=== PATIENT | male | born 1965 | race Caucasian/White ===

== ENCOUNTER 2017-11-07 06:05 | Day surgery (SDC) | payer OTHER ==
[~2017-11-07] VITALS: Ht 182.9 cm; Wt 116.6 kg
[~2017-11-07 06:05] MED LIST: AMOCLA875 PO; ASPI325; CEPH500 PO; CYCL10 PO; HYDACE5 PO; OXYACE7.5T PO; RXCYCL10 PO; RXOXYACE PO; SULTRIDS PO
== END 2017-11-07 11:15 | disposition home or self-care (01) ==
LOC: ORSCSDS 06:05
PROVIDERS: Orthopaedic Surgery
PROC: 0LS24ZZ Reposition Left Shoulder Tendon, Percutaneous Endoscopic Approach (ICD-10-PCS; principal; 2017-11-07 07:30)
PROC: 0LQ24ZZ Repair Left Shoulder Tendon, Percutaneous Endoscopic Approach (ICD-10-PCS; principal; 2017-11-07 07:30)
PROC: 0RBK4ZZ Excision of Left Shoulder Joint, Percutaneous Endoscopic Approach (ICD-10-PCS; principal; 2017-11-07 07:30)
PROC: 0RNK4ZZ Release Left Shoulder Joint, Percutaneous Endoscopic Approach (ICD-10-PCS; principal; 2017-11-07 07:30)
DX: M75.122 Complete rotator cuff tear or rupture of left shoulder, not specified as traumatic (principal); M75.22 Bicipital tendinitis, left shoulder; M75.42 Impingement syndrome of left shoulder; Z87.891 Personal history of nicotine dependence; E66.9 Obesity, unspecified; Z68.34 Body mass index [BMI] 34.0-34.9, adult
CPT/HCPCS: C1713; J0171; J0690; J1100; J2250; J2405; J3010; J7120

== ENCOUNTER 2018-03-01 16:58 | Emergency (ER) | payer OTHER ==
[~2018-03-01] VITALS: Ht 180.3 cm; Wt 68.5 kg
[2018-03-01] MEDS ORDERED: LOSA50 PO (17:58)
[2018-03-01 18:01] LABS: BASOPHILS ABSOLUTE AUTO 0.03 K/mm3 (0.00-0.23); BASOPHILS PERCENT AUTO 0 % (0-2); EOSINOPHILS ABSOLUTE AUTO 0.12 K/mm3 (0.00-0.68); EOSINOPHILS PERCENT AUTO 1 % (0-6); Hematocrit 43.1 % (37.0-53.0); Hemoglobin 14.7 g/dL (13.5-17.5); IMMATURE GRAN ABSOLUTE AUTO 0.03 K/mm3 (0.00-0.10); IMMATURE GRAN PERCENT AUTO 0 % (0-1); LYMPHOCYTES ABSOLUTE AUTO 2.98 K/mm3 (0.84-5.20); LYMPHOCYTES PERCENT AUTO 34 % (21-46); MONOCYTES ABSOLUTE AUTO 0.54 K/mm3 (0.16-1.47); MONOCYTES PERCENT AUTO 6 % (4-13); Mean Corpuscular HGB 32.2 pg (26.0-34.0); Mean Corpuscular HGB Conc 34.1 g/dL (31.5-36.5); Mean Corpuscular Volume 95 fL (80-100); NEUTROPHILS ABSOLUTE AUTO 4.97 K/mm3 (1.96-9.15); NEUTROPHILS PERCENT AUTO 57 % (41-73); Platelet Count 165 K/mm3 (150-400); RDW Coefficient Variation 12.3 % (11.7-14.2); RDW Standard Deviation 42.5 fL (35.1-46.3); Red Blood Cell Count 4.56 M/mm3 (4.30-5.90); White Blood Cell Count 8.67 K/mm3 (4.00-11.30)
[2018-03-01 18:21] LABS: Alanine Aminotransfer (ALT/SGP 80 U/L (12-78); Albumin, Blood 3.9 g/dL (3.4-5.0); Albumin/Globulin Ratio 1.3 (0.8-1.8); Alk Phos 66 U/L (50-136); Anion Gap 7 mmol/L (6-16); Aspartate Aminotrans (AST/SGOT 33 U/L (12-37); Bilirubin, Total 1.1 mg/dL (0.1-1.0); Blood Urea Nitrogen 11 mg/dL (8-24); Bun/Creatinine Ratio 7.9 (12.0-20.0); CO2, Blood 26 mmol/L (21-32); Calcium, Blood 8.2 mg/dL (8.5-10.1); Chloride, Blood 107 mmol/L (98-108); Creatinine, Blood 1.39 mg/dL (0.60-1.20); Glomerular Filtration Rate 57 (60-); Glucose, Blood 92 mg/dL (70-99); Potassium, Blood 3.6 mmol/L (3.5-5.5); Sodium, Blood 140 mmol/L (136-145); Total Protein, Blood 6.9 g/dL (6.4-8.2); Troponin I <0.015 ng/mL (0.000-0.040)
== END 2018-03-01 19:16 | disposition home or self-care (01) ==
LOC: ER 16:58
PROVIDERS: Emergency Medicine
DX: R55 Syncope and collapse (principal); I10 Essential (primary) hypertension; F17.210 Nicotine dependence, cigarettes, uncomplicated
CPT/HCPCS: 36415; 71046; 80053; 83880; 84484; 85025; 93005; 93010; 96374; 99284-25; J0360

== ENCOUNTER → 2018-05-15 | Outpatient (CLI) | payer OTHER ==
[~2018-05-15] MED LIST changes: +LOSA50 PO
[2018-05-15 18:28] LABS: BASOPHILS ABSOLUTE AUTO 0.03 K/mm3 (0.00-0.23); BASOPHILS PERCENT AUTO 0 % (0-2); EOSINOPHILS ABSOLUTE AUTO 0.14 K/mm3 (0.00-0.68); EOSINOPHILS PERCENT AUTO 2 % (0-6); Hematocrit 42.5 % (37.0-53.0); Hemoglobin 15.2 g/dL (13.5-17.5); IMMATURE GRAN ABSOLUTE AUTO 0.02 K/mm3 (0.00-0.10); IMMATURE GRAN PERCENT AUTO 0 % (0-1); LYMPHOCYTES ABSOLUTE AUTO 2.81 K/mm3 (0.84-5.20); LYMPHOCYTES PERCENT AUTO 30 % (21-46); MONOCYTES ABSOLUTE AUTO 0.67 K/mm3 (0.16-1.47); MONOCYTES PERCENT AUTO 7 % (4-13); Mean Corpuscular HGB 32.6 pg (26.0-34.0); Mean Corpuscular HGB Conc 35.8 g/dL (31.5-36.5); Mean Corpuscular Volume 91 fL (80-100); Mean Platelet Volume 11.5 fL (9.1-12.4); NEUTROPHILS ABSOLUTE AUTO 5.68 K/mm3 (1.96-9.15); NEUTROPHILS PERCENT AUTO 61 % (41-73); Platelet Count 191 K/mm3 (150-400); RDW Coefficient Variation 12.2 % (11.7-14.2); RDW Standard Deviation 40.7 fL (35.1-46.3); Red Blood Cell Count 4.66 M/mm3 (4.30-5.90); White Blood Cell Count 9.35 K/mm3 (4.00-11.30)
[2018-05-15 18:42] LABS: Alanine Aminotransfer (ALT/SGP 38 U/L (12-78); Albumin, Blood 3.7 g/dL (3.4-5.0); Albumin/Globulin Ratio 1.3 (0.8-1.8); Alk Phos 67 U/L (40-126); Anion Gap 8 mmol/L (6-16); Aspartate Aminotrans (AST/SGOT 19 U/L (12-37); Bilirubin, Total 1.9 mg/dL (0.1-1.0); Blood Urea Nitrogen 14 mg/dL (8-24); Bun/Creatinine Ratio 10.1 (12.0-20.0); CO2, Blood 28 mmol/L (21-32); CPK Creatine Kinase 161 U/L (39-308); Calcium, Blood 8.4 mg/dL (8.5-10.1); Chloride, Blood 106 mmol/L (98-108); Creatinine, Blood 1.38 mg/dL (0.60-1.20); Globulin, Blood 2.9 g/dL (2.2-4.0); Glomerular Filtration Rate 54 (60-); Glucose, Blood 102 mg/dL (70-99); Potassium, Blood 3.8 mmol/L (3.5-5.5); Sodium, Blood 142 mmol/L (136-145); Total Protein, Blood 6.6 g/dL (6.4-8.2)
[2018-05-15 18:44] LABS: Troponin I <0.017 ng/mL (0.000-0.040)
== END | disposition home or self-care (01) ==
LOC: LAB SHORT 18:22 → LAB EV 18:22
PROVIDERS: Physician Assistant
DX: E80.6 Other disorders of bilirubin metabolism (principal); R07.9 Chest pain, unspecified
CPT/HCPCS: 80053; 82248; 82550; 84484; 85025

== ENCOUNTER 2018-05-23 08:52 | Day surgery (SDC) | payer OTHER ==
[~2018-05-23] VITALS: Ht 180.3 cm; Wt 103.0 kg
[2018-05-23 09:34] LABS: CHOL/HDL RATIO 4.6; Cholesterol 169 mg/dL (50-200); HDL Cholesterol 37 mg/dL (>39); LDL/HDL RATIO 3.1; Low Density Lipoprotein Chol 114 mg/dL (0-110); Triglycerides 89 mg/dL (30-160); Very Low Density Lipoprot Chol 17 mg/dL (6-32)
[2018-05-23] MEDS ORDERED: AMLO5 PO (10:25)
[2018-05-23] MEDS ORDERED: NITR.6SL SL (10:26)
[2018-05-23] MEDS ORDERED: METO25ER PO (10:26)
[2018-05-23] MEDS ORDERED: Isosorbide Dini30 MG (13:59)
--- NOTE | 2018-05-23 15:45 | NUR ---
SUMMARY: PT HAS HAD UENVENTFUL POST PROCEDURE COURSE. EATING/DRINKING WITHOUT DIFFICULTY. NO BLEEDING OR SWELLING NOTED TO RIGHT WRIST ACCESS SITE. CMS INTACT TO RIGHT HAND. NO NUMBNESS OR TINGLING NOTED. CAP REFILL BRISK. PT HAS AMBULATED IN DEPARTMENT. STEADY ON FEET. + VOID. NO C/O PAIN OR DISCOMFORT. FAMILY AT BEDSIDE.
--- NOTE | 2018-05-23 16:45 | NUR ---
REVIEWED DISCHARGE INSTRUCTIONS WITH PATIENT. HE READ THROUGH INSTRUCTIONS ON OWN THEN DISCUSSED WITH RN AFTER. PT ABLE TO ANSWER QUESTIONS APPROPRIATELY REGARDING ACTIVITY LEVEL, SIGNS OF INFECTION, AND EMERGENCY CARE IF BLEEDING. INITIATED REMOVAL OF AIR FROM TR BAND APPROX 30 MINUTES AGO. PT TOLERATING WELL. NO BLEEDING OR SWELLING NOTED.
--- NOTE | 2018-05-23 17:08 | NUR ---
TR BAND FULLY DEFLATED PRIOR TO DISCHARGE. NO BLEEDING OR SWELLING NOTED. PT DRESSED SELF WITHOUT DIFFICULTY. TR BAND REMOVED AND DRESSING APPLIED. ARM BOARD PLACED. NO CHANGE TO [facility]. NO BLEEDING/SWELLING. NO NUMBNESS OR TINGLING TO HAND. CAP REFILL BRISK. IV D/C TIP INTACT. FAMILY HERE TO DRIVE HIM HOME.
== END 2018-05-23 17:00 | disposition home or self-care (01) ==
LOC: MHTC 08:52
PROVIDERS: Internal Medicine Cardiovascular Disease
DX: I25.110 Atherosclerotic heart disease of native coronary artery with unstable angina pectoris (principal); I10 Essential (primary) hypertension; F17.210 Nicotine dependence, cigarettes, uncomplicated; Z79.899 Other long term (current) drug therapy
CPT/HCPCS: 36415; 80061; 93306; 93454; 93571; 99152; 99153; C1769; C1887; C1894; J1644; J2250; J3010; J7030; Q9967

== ENCOUNTER 2018-06-17 12:42 | Day surgery (SDC) | payer OTHER ==
[~2018-06-17] VITALS: Ht 180.3 cm; Wt 98.4 kg
[~2018-06-17 12:42] MED LIST changes: +AMLO5 PO; +ATOR20 PO; +Adult Low Dose81 MG PO; +Isosorbide Dini30 MG PO; +LOSARTAN POTAS100 MG PO; +METO25ER PO; +NITR.6SL SL
--- NOTE | 2018-06-17 15:25 | NUR ---
06/17/18 1525 Natalee Torre INJECTED 10 ML NORMAL SALINE FOR POLYP REMOVAL IN BX PORT
== END 2018-06-17 15:44 | disposition home or self-care (01) ==
LOC: ORSCSDS 12:42
PROVIDERS: Internal Medicine Gastroenterology
PROC: 0DBN8ZX Excision of Sigmoid Colon, Via Natural or Artificial Opening Endoscopic, Diagnostic (ICD-10-PCS; principal; 2018-06-17 14:00)
PROC: 0DBH8ZX Excision of Cecum, Via Natural or Artificial Opening Endoscopic, Diagnostic (ICD-10-PCS; principal; 2018-06-17 14:00)
PROC: 0DBP8ZX Excision of Rectum, Via Natural or Artificial Opening Endoscopic, Diagnostic (ICD-10-PCS; principal; 2018-06-17 14:00)
PROC: 0DBL8ZX Excision of Transverse Colon, Via Natural or Artificial Opening Endoscopic, Diagnostic (ICD-10-PCS; principal; 2018-06-17 14:00)
DX: Z12.11 Encounter for screening for malignant neoplasm of colon (principal); D12.3 Benign neoplasm of transverse colon; D12.0 Benign neoplasm of cecum; K63.5 Polyp of colon; K62.1 Rectal polyp; K57.30 Diverticulosis of large intestine without perforation or abscess without bleeding; K64.8 Other hemorrhoids; I10 Essential (primary) hypertension; F17.210 Nicotine dependence, cigarettes, uncomplicated; Z79.899 Other long term (current) drug therapy
CPT/HCPCS: 88305; J2704; J7040; J7120

== ENCOUNTER → 2018-06-21 | Outpatient (CLI) | payer OTHER ==
[2018-06-23 17:36] LABS: Campylobacter Sp Not Detected (NOT DETECT); Cryptosporidium Not Detected (NOT DETECT); Cyclospora Cayetanensis Not Detected (NOT DETECT); E. Coli O157 Not Detected (NOT DETECT); Entamoeba Histolytica Not Detected (NOT DETECT); Enteroaggregative E. coli-EAEC Not Detected (NOT DETECT); Enteropathogenic E. coli-EPEC Not Detected (NOT DETECT); Enterotoxigenic E. coli-ETEC Not Detected (NOT DETECT); Plesiomonas Shigelloides Not Detected (NOT DETECT); Salmonella Sp Not Detected (NOT DETECT); Shiga Toxin-prod E. coli-STEC Not Detected (NOT DETECT); Shigella/Enteroin E. coli-EIEC Not Detected (NOT DETECT); Vibrio Cholerae Not Detected (NOT DETECT); Vibrio Sp Not Detected (NOT DETECT); Yersinia Enterocolitica Not Detected (NOT DETECT)
[2018-06-23 17:37] LABS: Adenovirus F 40/41 Not Detected (NOT DETECT); Astrovirus Not Detected (NOT DETECT); Giardia Lamblia Not Detected (NOT DETECT); Norovirus GI/GII Not Detected (NOT DETECT); Rotavirus A Not Detected (NOT DETECT); Sapovirus Not Detected (NOT DETECT)
== END ==
LOC: LAB SHORT 08:10 → LAB EV 08:10
PROVIDERS: Physician Assistant
DX: K52.9 Noninfective gastroenteritis and colitis, unspecified (principal)
CPT/HCPCS: 87507

== ENCOUNTER 2018-07-17 09:22 | Day surgery (SDC) | payer OTHER ==
[~2018-07-17] VITALS: Ht 180.3 cm; Wt 103.2 kg
[2018-07-17] MEDS ORDERED: Prilosec Otc20 MG PO (09:53)
--- NOTE | 2018-07-17 09:56 | NUR ---
07/17/18 0956 Kay Argueta 1ST I.V. ATTEMPT IN RIGHT HAND BY EDGAR 2ND I.V. ATTEMPT IN RIGHT WRIST BY [facility] 3RD I.V. ATTEMPT IN RIGHT AC
== END 2018-07-17 12:30 | disposition home or self-care (01) ==
LOC: ORSCSDS 09:22
PROVIDERS: Internal Medicine Gastroenterology
PROC: 0DB68ZX Excision of Stomach, Via Natural or Artificial Opening Endoscopic, Diagnostic (ICD-10-PCS; principal; 2018-07-17 10:45)
PROC: 0DB98ZX Excision of Duodenum, Via Natural or Artificial Opening Endoscopic, Diagnostic (ICD-10-PCS; principal; 2018-07-17 10:45)
DX: K62.5 Hemorrhage of anus and rectum (principal); K44.9 Diaphragmatic hernia without obstruction or gangrene; R19.7 Diarrhea, unspecified; B96.81 Helicobacter pylori [H. pylori] as the cause of diseases classified elsewhere; R10.11 Right upper quadrant pain; I10 Essential (primary) hypertension; Z86.010 Personal history of colon polyps; R93.3 Abnormal findings on diagnostic imaging of other parts of digestive tract; K76.0 Fatty (change of) liver, not elsewhere classified; E66.9 Obesity, unspecified; Z68.31 Body mass index [BMI] 31.0-31.9, adult; F17.210 Nicotine dependence, cigarettes, uncomplicated; Z79.899 Other long term (current) drug therapy
CPT/HCPCS: 88305; 88342; J2704; J7120

== ENCOUNTER → 2018-08-13 | Outpatient (CLI) | payer OTHER ==
[~2018-08-13] MED LIST changes: +HYDHCL25 PO; +Prilosec Otc20 MG PO; +Triamcinolone A15 G3 TOP
[2018-08-13 07:54] LABS: BASOPHILS ABSOLUTE AUTO 0.04 K/mm3 (0.00-0.23); BASOPHILS PERCENT AUTO 0 % (0-2); EOSINOPHILS PERCENT AUTO 2 % (0-6); Hematocrit 45.8 % (37.0-53.0); Hemoglobin 16.2 g/dL (13.5-17.5); IMMATURE GRAN ABSOLUTE AUTO 0.02 K/mm3 (0.00-0.10); IMMATURE GRAN PERCENT AUTO 0 % (0-1); LYMPHOCYTES ABSOLUTE AUTO 2.57 K/mm3 (0.84-5.20); LYMPHOCYTES PERCENT AUTO 25 % (21-46); MONOCYTES ABSOLUTE AUTO 0.66 K/mm3 (0.16-1.47); MONOCYTES PERCENT AUTO 7 % (4-13); Mean Corpuscular HGB 31.3 pg (26.0-34.0); Mean Corpuscular HGB Conc 35.4 g/dL (31.5-36.5); Mean Corpuscular Volume 88 fL (80-100); Mean Platelet Volume 11.7 fL (9.1-12.4); NEUTROPHILS ABSOLUTE AUTO 6.61 K/mm3 (1.96-9.15); NEUTROPHILS PERCENT AUTO 66 % (41-73); Platelet Count 212 K/mm3 (150-400); RDW Coefficient Variation 12.2 % (11.7-14.2); Red Blood Cell Count 5.18 M/mm3 (4.30-5.90)
[2018-08-13 08:07] LABS: Alanine Aminotransfer (ALT/SGP 46 U/L (12-78); Albumin, Blood 3.9 g/dL (3.4-5.0); Albumin/Globulin Ratio 1.2 (0.8-1.8); Alk Phos 84 U/L (40-126); Anion Gap 10 mmol/L (6-16); Aspartate Aminotrans (AST/SGOT 20 U/L (12-37); Bilirubin, Total 1.3 mg/dL (0.1-1.0); Blood Urea Nitrogen 15 mg/dL (8-24); Bun/Creatinine Ratio 10.9 (12.0-20.0); CO2, Blood 28 mmol/L (21-32); Calcium, Blood 8.9 mg/dL (8.5-10.1); Chloride, Blood 104 mmol/L (98-108); Creatinine, Blood 1.38 mg/dL (0.60-1.20); Globulin, Blood 3.3 g/dL (2.2-4.0); Glomerular Filtration Rate 54 (60-); Glucose, Blood 102 mg/dL (70-99); Potassium, Blood 3.8 mmol/L (3.5-5.5); Sodium, Blood 142 mmol/L (136-145); Total Protein, Blood 7.2 g/dL (6.4-8.2)
[2018-08-13 08:11] LABS: Troponin I <0.017 ng/mL (0.000-0.040)
== END | disposition home or self-care (01) ==
LOC: LAB SHORT 07:49 → LAB EV 07:49
PROVIDERS: Physician Assistant Medical
DX: R07.89 Other chest pain (principal)
CPT/HCPCS: 80053; 84484; 85025; 85379; 85651; 86140

== ENCOUNTER 2018-08-28 11:06 | Emergency (ER) | payer OTHER ==
[~2018-08-28] VITALS: Ht 180.3 cm; Wt 100.7 kg
[~2018-08-28 11:06] MED LIST changes: -HYDHCL25 PO; -Triamcinolone A15 G3 TOP
[2018-08-28] MEDS ORDERED: HYDHCL25 PO (13:24)
[2018-08-28] MEDS ORDERED: Triamcinolone A15 G3 TOP (13:24)
== END 2018-08-28 13:34 | disposition home or self-care (01) ==
LOC: ER 11:06
DX: L25.9 Unspecified contact dermatitis, unspecified cause (principal); F17.210 Nicotine dependence, cigarettes, uncomplicated
CPT/HCPCS: 96372; 99283-25; J3301

== ENCOUNTER → 2018-09-06 | Outpatient (CLI) | payer OTHER ==
[~2018-09-06] MED LIST changes: +HYDHCL25 PO; +Triamcinolone A15 G3 TOP
== END | disposition home or self-care (01) ==
LOC: LAB SHORT 10:00 → LAB 10:00 → LAB FUT 08-07 09:45 → EDSTATUS 08-07 09:45
DX: K29.60 Other gastritis without bleeding (principal); R19.7 Diarrhea, unspecified; R10.11 Right upper quadrant pain
CPT/HCPCS: 87493

== ENCOUNTER → 2019-10-28 | Outpatient (CLI) | payer OTHER | END | disposition home or self-care (01) | LOC: LAB SHORT 07:58 → PLD 07:58 | DX: L72.0 Epidermal cyst (principal) | CPT/HCPCS: 88304 ==

== ENCOUNTER 2020-01-26 07:42 | Day surgery (SDC) | payer OTHER ==
[~2020-01-26] VITALS: Ht 182.9 cm; Wt 113.0 kg
[~2020-01-26 07:42] MED LIST changes: +NORVASC10 MG PO
== END 2020-01-26 09:59 | disposition home or self-care (01) ==
LOC: ORSCSDS 07:42
PROVIDERS: Orthopaedic Surgery
PROC: 01N50ZZ Release Median Nerve, Open Approach (ICD-10-PCS; principal; 2020-01-26 09:15)
DX: G56.01 Carpal tunnel syndrome, right upper limb (principal); I10 Essential (primary) hypertension; E66.9 Obesity, unspecified; Z68.33 Body mass index [BMI] 33.0-33.9, adult; Z79.899 Other long term (current) drug therapy; Z79.82 Long term (current) use of aspirin
CPT/HCPCS: J0690; J2704; J7120

== ENCOUNTER 2020-03-02 11:34 | Day surgery (SDC) | payer OTHER ==
[~2020-03-02] VITALS: Ht 182.9 cm; Wt 114.7 kg
== END 2020-03-02 13:54 | disposition home or self-care (01) ==
LOC: ORSCSDS 11:34
PROVIDERS: Internal Medicine Gastroenterology
PROC: 0DBM8ZX Excision of Descending Colon, Via Natural or Artificial Opening Endoscopic, Diagnostic (ICD-10-PCS; principal; 2020-03-02 13:00)
PROC: 0DBL8ZX Excision of Transverse Colon, Via Natural or Artificial Opening Endoscopic, Diagnostic (ICD-10-PCS; principal; 2020-03-02 13:00)
PROC: 0DBN8ZX Excision of Sigmoid Colon, Via Natural or Artificial Opening Endoscopic, Diagnostic (ICD-10-PCS; principal; 2020-03-02 13:00)
DX: R10.31 Right lower quadrant pain (principal); Z86.010 Personal history of colon polyps; K62.5 Hemorrhage of anus and rectum; D12.3 Benign neoplasm of transverse colon; D12.4 Benign neoplasm of descending colon; K57.30 Diverticulosis of large intestine without perforation or abscess without bleeding; K64.8 Other hemorrhoids; I10 Essential (primary) hypertension; E78.5 Hyperlipidemia, unspecified; F17.210 Nicotine dependence, cigarettes, uncomplicated; Z79.82 Long term (current) use of aspirin; Z79.899 Other long term (current) drug therapy
CPT/HCPCS: 88305; J2704; J7120

== ENCOUNTER 2020-06-02 06:55 | Day surgery (SDC) | payer OTHER ==
[~2020-06-02] VITALS: Ht 182.9 cm; Wt 117.7 kg
== END 2020-06-02 08:41 | disposition home or self-care (01) ==
LOC: ORSCSDS 06:55
PROVIDERS: Orthopaedic Surgery
PROC: 01N50ZZ Release Median Nerve, Open Approach (ICD-10-PCS; principal; 2020-06-02 08:00)
DX: G56.02 Carpal tunnel syndrome, left upper limb (principal); I10 Essential (primary) hypertension; E66.01 Morbid (severe) obesity due to excess calories; Z68.35 Body mass index [BMI] 35.0-35.9, adult; Z79.82 Long term (current) use of aspirin; Z79.899 Other long term (current) drug therapy
CPT/HCPCS: J0690; J2250; J2704; J3010

== ENCOUNTER → 2020-12-30 | Outpatient (CLI) | payer OTHER | END | disposition home or self-care (01) | LOC: LAB SHORT 16:00 → LAB 16:00 | DX: J34.89 Other specified disorders of nose and nasal sinuses (principal) | CPT/HCPCS: 87070; 87205 ==

== ENCOUNTER 2022-03-02 10:51 | Day surgery (SDC) | payer OTHER ==
[~2022-03-02] VITALS: Ht 182.9 cm; Wt 125.1 kg
--- NOTE | 2022-03-02 13:54 | NUR ---
03/02/22 1354 Natalee Torre 30MLS ROPIVICAINE 0.5% MIXED WITH 0.15ML EPI 1MG/ML TO CREATE A SOLUTION OF ROPIVICAINE 0.5% WITH EPI 1:200,000
--- NOTE | 2022-03-02 15:02 | NUR ---
03/02/22 1502 KAMERON LEVY PT STATES PAIN IS 8/10. FENTANYL 50MCG TO BE GIVEN VIA IV PUSH. BP 125/84. O2 SAT ON RA IS 93%. WILL ALSO GIVE PAIN PILL ONCE PT UP AND EATING SOMETHING.
== END 2022-03-02 15:47 | disposition home or self-care (01) ==
LOC: ORSCSDS 10:51
PROVIDERS: Podiatrist Foot & Ankle Surgery
PROC: 0SSF04Z Reposition Right Ankle Joint with Internal Fixation Device, Open Approach (ICD-10-PCS; principal; 2022-03-02 12:30)
DX: S82.61XA Displaced fracture of lateral malleolus of right fibula, initial encounter for closed fracture (principal); M25.571 Pain in right ankle and joints of right foot; S93.691A Other sprain of right foot, initial encounter; I10 Essential (primary) hypertension; I25.10 Atherosclerotic heart disease of native coronary artery without angina pectoris; E78.5 Hyperlipidemia, unspecified; K21.9 Gastro-esophageal reflux disease without esophagitis; Z79.899 Other long term (current) drug therapy; E66.9 Obesity, unspecified; Z68.37 Body mass index [BMI] 37.0-37.9, adult
CPT/HCPCS: A9270; C1713; C1776; J0171; J0690; J1100; J1885; J2250; J2405; J2704; J2795; J3010; J7120

== ENCOUNTER → 2022-09-18 | Outpatient (CLI) | payer OTHER ==
[~2022-09-18] MED LIST changes: +AMLO10 PO; +CLOP75 PO; +Calcium Carbon500 MG PO; +Nicoderm Cq1 EACH TOP; +OMEP20ER PO; +PRAV20 PO
[2022-09-18 17:47] LABS: BASOPHILS ABSOLUTE AUTO 0.03 K/mm3 (0.00-0.23); BASOPHILS PERCENT AUTO 0 % (0-2); EOSINOPHILS ABSOLUTE AUTO 0.14 K/mm3 (0.00-0.68); EOSINOPHILS PERCENT AUTO 1 % (0-6); Hematocrit 44.8 % (37.0-53.0); Hemoglobin 15.7 g/dL (13.5-17.5); IMMATURE GRAN ABSOLUTE AUTO 0.05 K/mm3 (0.00-0.10); IMMATURE GRAN PERCENT AUTO 1 % (0-1); LYMPHOCYTES ABSOLUTE AUTO 2.65 K/mm3 (0.84-5.20); LYMPHOCYTES PERCENT AUTO 27 % (21-46); MONOCYTES PERCENT AUTO 7 % (4-13); Mean Corpuscular Volume 91 fL (80-100); NEUTROPHILS ABSOLUTE AUTO 6.33 K/mm3 (1.96-9.15); NEUTROPHILS PERCENT AUTO 64 % (41-73); Platelet Count 218 K/mm3 (150-400); RDW Coefficient Variation 12.7 % (11.7-14.2); RDW Standard Deviation 42.5 fL (35.1-46.3)
[2022-09-18 19:36] LABS: Alanine Aminotransfer (ALT/SGP 65 U/L (12-78); Albumin, Blood 4.2 g/dL (3.4-5.0); Albumin/Globulin Ratio 1.3 (0.8-1.8); Alk Phos 69 U/L (50-136); Anion Gap 8 mmol/L (6-16); Aspartate Aminotrans (AST/SGOT 26 U/L (12-37); Bilirubin, Total 1.2 mg/dL (0.1-1.0); Blood Urea Nitrogen 15 mg/dL (8-24); Bun/Creatinine Ratio 13.3 (12.0-20.0); CHOL/HDL RATIO 7.2; CO2, Blood 28 mmol/L (21-32); Calcium, Blood 9.6 mg/dL (8.5-10.1); Chloride, Blood 105 mmol/L (98-108); Cholesterol 223 mg/dL (50-200); Creatinine, Blood 1.13 mg/dL (0.60-1.20); Globulin, Blood 3.2 g/dL (2.2-4.0); Glomerular Filtration Rate 77 (60-); Glucose, Blood 102 mg/dL (70-99); HDL Cholesterol 31 mg/dL (>39); LDL/HDL RATIO 4.4; Low Density Lipoprotein Chol 136 mg/dL (0-110); Potassium, Blood 3.9 mmol/L (3.5-5.5); Sodium, Blood 141 mmol/L (136-145); Total Protein, Blood 7.4 g/dL (6.4-8.2); Triglycerides 281 mg/dL (30-160); Very Low Density Lipoprot Chol 56 mg/dL (6-32)
== END ==
LOC: LAB SHORT 14:19 → LAB 14:19
PROVIDERS: Family Medicine
DX: E78.2 Mixed hyperlipidemia (principal)
CPT/HCPCS: 80053; 80061; 85025

== ENCOUNTER 2022-09-19 14:25 | Inpatient (IN) | payer OTHER ==
[~2022-09-19] VITALS: Ht 182.9 cm; Wt 130.4 kg
[~2022-09-19 14:25] MED LIST changes: -AMLO10 PO; -CLOP75 PO; -Calcium Carbon500 MG PO; -Nicoderm Cq1 EACH TOP; -OMEP20ER PO; -PRAV20 PO
[2022-09-19 15:38] LABS: Albumin, Blood 4.1 g/dL (3.4-5.0); Albumin/Globulin Ratio 1.2 (0.8-1.8); Bilirubin, Total 1.6 mg/dL (0.1-1.0); Bun/Creatinine Ratio 14.9 (12.0-20.0); Calcium, Blood 9.2 mg/dL (8.5-10.1); Creatinine, Blood 1.21 mg/dL (0.60-1.20); Globulin, Blood 3.4 g/dL (2.2-4.0); Total Protein, Blood 7.5 g/dL (6.4-8.2)
[2022-09-19 16:18] LABS: BASOPHILS ABSOLUTE AUTO 0.04 K/mm3 (0.00-0.23); BASOPHILS PERCENT AUTO 0 % (0-2); EOSINOPHILS ABSOLUTE AUTO 0.16 K/mm3 (0.00-0.68); EOSINOPHILS PERCENT AUTO 1 % (0-6); Hematocrit 46.2 % (37.0-53.0); IMMATURE GRAN ABSOLUTE AUTO 0.05 K/mm3 (0.00-0.10); IMMATURE GRAN PERCENT AUTO 0 % (0-1); LYMPHOCYTES ABSOLUTE AUTO 3.79 K/mm3 (0.84-5.20); LYMPHOCYTES PERCENT AUTO 32 % (21-46); MONOCYTES ABSOLUTE AUTO 0.79 K/mm3 (0.16-1.47); MONOCYTES PERCENT AUTO 7 % (4-13); Mean Corpuscular HGB 31.9 pg (26.0-34.0); Mean Corpuscular HGB Conc 34.6 g/dL (31.5-36.5); Mean Corpuscular Volume 92 fL (80-100); Mean Platelet Volume 11.4 fL (9.1-12.4); NEUTROPHILS ABSOLUTE AUTO 7.21 K/mm3 (1.96-9.15); NEUTROPHILS PERCENT AUTO 60 % (41-73); Platelet Count 232 K/mm3 (150-400); RDW Coefficient Variation 12.9 % (11.7-14.2); RDW Standard Deviation 43.1 fL (35.1-46.3); Red Blood Cell Count 5.01 M/mm3 (4.30-5.90); White Blood Cell Count 12.04 K/mm3 (4.00-11.30)
[2022-09-19 16:32] LABS: Source, Urine Clean Catch
[2022-09-19 16:36] LABS: Appearance, Urine Clear (Clear); Bilirubin, Urine Neg (Neg); Blood, Urine Neg (Neg); Color, Urine Yellow (P-Yellow); Glucose Qualitative, Urine Neg (Neg); Ketones, Urine Neg (Neg); Leukocyte Esterase, Urine 1+ (Neg); Nitrite, Urine Neg (Neg); Protein, Urine 1+ (Neg); Urobilinogen, Urine NORM (Normal)
[2022-09-19 16:44] LABS: Bacteria Few /hpf; Mucus Light (0-Heavy); Red Blood Cells, Urine 0-2 /hpf (0-2); Squamous Epithelial Cells Not Seen /hpf (Few)
[2022-09-19] MEDS ORDERED: METO25ER PO (19:53)
[2022-09-19] MEDS ORDERED: LOSA50 PO (20:04)
[2022-09-19] MEDS ORDERED: AMLO10 PO (20:05)
[2022-09-19] MEDS ORDERED: OMEP20ER PO (20:05)
[2022-09-19] MEDS ORDERED: ATOR20 PO (20:05)
[2022-09-19 20:26] VITALS: BP 165/104
--- NOTE | 2022-09-19 20:30 | NUR ---
ADMIT NOTE; PT ARRIVES FROM THE ED VIA HOPSITAL BED. THE PT IS AXO X4 AND IS ABLE TO TRANSFER TO THE HOSPITAL BED VIA STANDBY ASSIST. THE PT REPORTS SOME NUMBNESS AND "STATIC ELECTRICITY LIKE" FEELING IN HIS L ARM. THE L ARM IS WEAKER THAN THE RIGHT WHEN I ASKED THE PATINET TO SQUEEZE MY HANDS. THE PTS L LEG IS SLIGHTLY WEAKER THAN THE R WELL. THE PT HAS NO TEETH, MAKING HIM DIFFICULT TO UNDERSTAND AT TIMES. THE PT IS ALSO VERY WALES. THE PT DENIES ANY PAIN OR ACUTE NEEDS AT THIS TIME. CURRENTLY THE PT IS SITTING IN BED WITH THE BED IN THE LOWEST POSITION AND THE CALL LIGHT WITHIN REACH.
[2022-09-20 01:48] VITALS: BP 143/98
--- NOTE | 2022-09-20 01:58 | NUR ---
CALLED TO NOTIFY HIM THAT THE PT HAD A 7 BEAT RUN OF V-TACH. PT IS ASYMPTOMATIC. TO PUT IN ORDERS FOR AM LABS.
[2022-09-20 04:17] VITALS: BP 134/101
--- NOTE | 2022-09-20 05:24 | NUR ---
SHIFT SUMMARY; NO ACUTE CHANGES OVERNIGHT. THE PT IS AXO X4 AND STANDBY ASSIST TO THE BATHROOM. THE PT HAS BEEN SLEEPING FOR THE MAJORITY OF THE NIGHT. TELE IS IN PLACE, NSR IN THE 70'S. THE PT DENIES ANY SOB, CHEST PAIN/PRESSURE. THE PT DOES HAVE SOME L SIDED WEAKNESS, MORE PROMINANT IN HIS L ARM THAN L LEG. THE PT DESCRIBES HIS L ARM FEELING LIKE THERE IS "STATIC ELECTRICTY" GOING DOWN HIS L ARM. CURRENTLY THE PT IS SLEEPING IN BED WITH THE BED IN THE LOWEST POSITION AND THE CALL LIGHT AT BEDSIDE. FIRE RISK ASSESSED AND FIRE SAFETY MAINTAINED T/O THE SHIFT.
[2022-09-20 06:05] LABS: Bun/Creatinine Ratio 13.6 (12.0-20.0); Calcium, Blood 8.6 mg/dL (8.5-10.1); Creatinine, Blood 1.25 mg/dL (0.60-1.20); Magnesium, Blood 2.2 mg/dL (1.6-2.4); Potassium, Blood 3.7 mmol/L (3.5-5.5)
[2022-09-20 07:37] VITALS: BP 149/89
[2022-09-20 16:45] VITALS: BP 142/93
--- NOTE | 2022-09-20 17:58 | NUR ---
SHIFT NOTE PT LAERT. SPEACH THICK. NO DENTITION. HE HAS IMPAIRED HEARING FROM . NO HEARING AIDES. VISUAL FIELD CUT TO THE LEFT. NEEDS CUEING TO SLOW DOWN WEHN EATING. HE REALLY SHOVELS THE FOOD IN AND DRINKS LARGE AMOUNTS QUICKLY. GAIT STEADY. SAFETY CUEING D/T VISUAL FIELD CUT. HE TENDS TO WALK INTO THE DOOR FRAME. FAMILY HERE. ABLE TO DIAL HIS CELL PHONE. HE IS COMPLAINING OF LEFT ARM FEELING PRICKLEY AND NUMB. VOIDING. HE ACKNOWLEDGES THAT HIS DRIVING DAYS MAYBE OVER. CONTINUE POC.
[2022-09-20 20:40] VITALS: BP 146/110
[2022-09-21 04:17] VITALS: BP 145/85
--- NOTE | 2022-09-21 06:16 | NUR ---
PT TRANSFERRED WITHOUT ASSIST TO TOILET MULTIPLE TIMES LAST NIGHT. NO NEUROLOGICAL CHANGES NOTED COMPARED TO REPORT. PARTIAL L FIELD VISION IMPAIRMENT BUT ABLE TO COMPENSATE SAFELY. FIRE SAFETY REVIEWED.
[2022-09-21 07:41] VITALS: BP 168/87
--- NOTE | 2022-09-21 09:43 | NUR ---
Patients son arrived with a W/C & patient wanted to go downstairs for a walk with his son. Educated patient on safety, and risks of harm if patient leaves the floor. Patient admitted for stroke, & RN will not be able to monitor patient for safety. Patient & son verbalized understanding, but still wanted to leave medical unit for a walk. aware. Tele notified.
[2022-09-21 15:13] VITALS: BP 132/89
[2022-09-21 16:43] LABS: SARS-Cov-2 (COVID-19) PCR, MMC NEGATIVE (NEGATIVE)
--- NOTE | 2022-09-21 17:41 | NUR ---
DAYSHIFT SUMMARY Patient alert & oriented x4. Patient is [facility]. Worked with PLAY BACK OPERATOR, PT, & OT this shift. Neuro checks Q8H, weakness noted on left side. Plan to DC to SNF for rehab. COVID collected & results pending. Provided education on ignition sources & risk of injury when oxygen in use. Patient verbalizes understanding, denied having ignition sources in belongings. MD ordered nicotine patch for smoking cessation. Vitals stable. Will continue plan of care.
[2022-09-21 21:12] VITALS: BP 129/95
[2022-09-22 04:48] VITALS: BP 125/89
--- NOTE | 2022-09-22 04:48 | NUR ---
SHIFT SUMMARY MR VALENCIA WAS EDUCATED RE IGNITION SOURCES AND RISK FOR INJURY WHEN OXYGEN IN USE. HE IS A SMOKER BUT DENIED HAVING ANY IGNITION SOURCES WITH HIM. HE VERBALISED UNDERSTANDING. REASSESSMENET ON Q1-2 HRLY ROUNDS. VISUAL DEFICIT UNCHANGED, STRONG EQUAL HAND MANAGER RESOURCE AND FOOT PUSH/PULL. HE SAID HE FEELS LIKE HIS LEFT ARM IS SLOW MOVING COMPARED TO THE RIGHT AND HAS SOME NUMBNESS. HE WALKS WITH WALKER TO THE BATHROOM, SAID THAT IT IS MORE HIS VISUAL DEFICIT THAT CAUSES HIM TO FEEL UNSTEADY THAN ANY LEG WEAKNESS. NO CALLS FROM SLOT KEY PERSON OVERNIGHT. BED LOW, CALL LIGHT IN REACH.
[2022-09-22 07:51] VITALS: BP 117/74
[2022-09-22] MEDS ORDERED: Calcium Carbon500 MG PO (11:53)
[2022-09-22] MEDS ORDERED: PRAV20 PO (11:54)
[2022-09-22] MEDS ORDERED: CLOP75 PO (11:54)
[2022-09-22] MEDS ORDERED: Nicoderm Cq1 EACH TOP (11:54)
--- NOTE | 2022-09-22 14:09 | NUR ---
Patient ready for discharge to SNF for rehab. COVID test negative. Vitals stable. Removed right AC IVP, cath tip intact. Neuros WNL, reports weakness in LUE. Placed nicotine patch on LUE. Provided education on ignition sources & risk of injury when O2 in use. Patient verbalized understanding & denied having any ignition sources in personal belongings. Patient left medical unit at 1400 to go to [facility]. Called & gave report to Francie Nurse at [facility] at 1410.
== END 2022-09-22 13:53 | DRG 65 ==
LOC: ER 14:25 → MEDS 19:04 → ERHOLD 19:04 → MEDS 20:22
PROVIDERS: Internal Medicine; Physician Assistant; ADMIT Internal Medicine
DX: I63.9 Cerebral infarction, unspecified (principal); G81.94 Hemiplegia, unspecified affecting left nondominant side; I12.9 Hypertensive chronic kidney disease with stage 1 through stage 4 chronic kidney disease, or unspecified chronic kidney disease; N18.9 Chronic kidney disease, unspecified; R41.842 Visuospatial deficit; H54.62 Unqualified visual loss, left eye, normal vision right eye; F17.210 Nicotine dependence, cigarettes, uncomplicated; K06.9 Disorder of gingiva and edentulous alveolar ridge, unspecified; F10.90 Alcohol use, unspecified, uncomplicated; E78.5 Hyperlipidemia, unspecified; H91.90 Unspecified hearing loss, unspecified ear; Z20.822 Contact with and (suspected) exposure to COVID-19; I25.10 Atherosclerotic heart disease of native coronary artery without angina pectoris; R90.82 White matter disease, unspecified; R29.703 NIHSS score 3; Z79.82 Long term (current) use of aspirin; Z79.02 Long term (current) use of antithrombotics/antiplatelets; Z71.6 Tobacco abuse counseling; Z79.899 Other long term (current) drug therapy; Z98.52 Vasectomy status; Z98.890 Other specified postprocedural states; Z86.010 Personal history of colon polyps
CPT/HCPCS: 36415; 70450; 80048; 80053; 81001; 82947; 83735; 85025; 87086; 92526; 92610; 93005; 93010; 93306; 93880; 97112; 97116; 97161; 97166; 97535; 99285-25; A9270; J1650; J7030; U0002

== ENCOUNTER 2022-10-31 10:53 | Emergency (ER) | payer OTHER ==
[~2022-10-31] VITALS: Ht 180.3 cm; Wt 117.9 kg
[~2022-10-31 10:53] MED LIST changes: +AMLO10 PO; +CLOP75 PO; +Calcium Carbon500 MG PO; +Nicoderm Cq1 EACH TOP; +OMEP20ER PO; +PRAV20 PO
[2022-10-31 11:42] LABS: BASOPHILS ABSOLUTE AUTO 0.04 K/mm3 (0.00-0.23); BASOPHILS PERCENT AUTO 0 % (0-2); EOSINOPHILS ABSOLUTE AUTO 0.13 K/mm3 (0.00-0.68); EOSINOPHILS PERCENT AUTO 1 % (0-6); Hematocrit 46.4 % (37.0-53.0); Hemoglobin 16.2 g/dL (13.5-17.5); IMMATURE GRAN ABSOLUTE AUTO 0.03 K/mm3 (0.00-0.10); IMMATURE GRAN PERCENT AUTO 0 % (0-1); LYMPHOCYTES ABSOLUTE AUTO 2.12 K/mm3 (0.84-5.20); LYMPHOCYTES PERCENT AUTO 19 % (21-46); MONOCYTES ABSOLUTE AUTO 0.61 K/mm3 (0.16-1.47); MONOCYTES PERCENT AUTO 5 % (4-13); Mean Corpuscular HGB 31.5 pg (26.0-34.0); Mean Corpuscular HGB Conc 34.9 g/dL (31.5-36.5); Mean Corpuscular Volume 90 fL (80-100); Mean Platelet Volume 11.7 fL (9.1-12.4); NEUTROPHILS ABSOLUTE AUTO 8.45 K/mm3 (1.96-9.15); NEUTROPHILS PERCENT AUTO 74 % (41-73); Platelet Count 253 K/mm3 (150-400); RDW Standard Deviation 39.9 fL (35.1-46.3); Red Blood Cell Count 5.14 M/mm3 (4.30-5.90); White Blood Cell Count 11.38 K/mm3 (4.00-11.30)
[2022-10-31 12:06] LABS: Alanine Aminotransfer (ALT/SGP 50 U/L (12-78); Albumin, Blood 4.3 g/dL (3.4-5.0); Albumin/Globulin Ratio 1.3 (0.8-1.8); Alk Phos 89 U/L (50-136); Anion Gap 4 mmol/L (6-16); Aspartate Aminotrans (AST/SGOT 26 U/L (12-37); Bilirubin, Total 1.8 mg/dL (0.1-1.0); Blood Urea Nitrogen 13 mg/dL (8-24); Bun/Creatinine Ratio 10.2 (12.0-20.0); CO2, Blood 28 mmol/L (21-32); Calcium, Blood 9.5 mg/dL (8.5-10.1); Chloride, Blood 110 mmol/L (98-108); Creatinine, Blood 1.28 mg/dL (0.60-1.20); Ethanol (Alcohol), Blood, Med <3 mg/dL; Globulin, Blood 3.3 g/dL (2.2-4.0); Glomerular Filtration Rate 66 (60-); Glucose, Blood 125 mg/dL (70-99); Potassium, Blood 4.1 mmol/L (3.5-5.5); Sodium, Blood 142 mmol/L (136-145); Total Protein, Blood 7.6 g/dL (6.4-8.2)
[2022-10-31 15:00] VITALS: BP 135/98
== END 2022-10-31 16:09 | disposition home or self-care (01) ==
LOC: ER 10:53
PROVIDERS: Physician Assistant
DX: I63.511 Cerebral infarction due to unspecified occlusion or stenosis of right middle cerebral artery (principal); R47.1 Dysarthria and anarthria; G81.90 Hemiplegia, unspecified affecting unspecified side; Z79.899 Other long term (current) drug therapy; I10 Essential (primary) hypertension; F17.210 Nicotine dependence, cigarettes, uncomplicated
CPT/HCPCS: 51702; 70450; 70496; 70498; 80053; 83735; 85025; 93005; 93010; 99285-25; A9270; G0480; Q9967

== ENCOUNTER 2022-11-26 04:10 | Emergency (ER) | payer OTHER ==
[~2022-11-26] VITALS: Ht 182.9 cm; Wt 117.9 kg
[2022-11-26 04:17] VITALS: BP 140/101
[2022-11-26 04:43] LABS: Source, Urine Foley catheter
[2022-11-26 04:49] LABS: Bilirubin, Urine Neg (Neg); Blood, Urine 5+ (Neg); Glucose Qualitative, Urine Neg (Neg); Ketones, Urine Neg (Neg); Leukocyte Esterase, Urine 3+ (Neg); Nitrite, Urine Neg (Neg); Protein, Urine 3+ (Neg); Specific Gravity, Urine 1.025 (1.003-1.022); Urobilinogen, Urine 1+ (Normal)
[2022-11-26 04:56] LABS: Appearance, Urine Hazy (Clear); Color, Urine Yellow (P-Yellow)
[2022-11-26 04:57] LABS: Bacteria Mod /hpf; Red Blood Cells, Urine TNTC /hpf (0-2); Squamous Epithelial Cells Few /hpf (Few); White Blood Cells, Urine 50-100 /hpf (0-5)
[2022-11-26] MEDS ORDERED: CIPR500 PO (05:20)
[2022-11-26] MEDS ORDERED: FLUOXETINE HCL20 M1 PO (05:21)
[2022-11-26] MEDS ORDERED: DICLOFENAC SOD100 GM TP (05:21)
[2022-11-26] MEDS ORDERED: HYDPAM25 PO (05:22)
[2022-11-26] MEDS ORDERED: LIDO700A20 TOP (05:24)
[2022-11-26] MEDS ORDERED: MELA3 PO (05:24)
[2022-11-26] MEDS ORDERED: SENN187 PO (05:26)
[2022-11-26] MEDS ORDERED: MIRALAX17 GM PO (05:29)
== END 2022-11-26 05:50 | disposition home or self-care (01) ==
LOC: ER 04:10
PROVIDERS: Emergency Medicine
DX: T83.018A Breakdown (mechanical) of other urinary catheter, initial encounter (principal); N39.0 Urinary tract infection, site not specified; I10 Essential (primary) hypertension; I69.354 Hemiplegia and hemiparesis following cerebral infarction affecting left non-dominant side; I69.398 Other sequelae of cerebral infarction; H53.8 Other visual disturbances; F17.210 Nicotine dependence, cigarettes, uncomplicated; Z79.899 Other long term (current) drug therapy
CPT/HCPCS: 51702; 51798; 81001; 87086; 99284-25

== ENCOUNTER 2022-12-12 02:21 | Emergency (ER) | payer OTHER ==
[~2022-12-12] VITALS: Ht 182.9 cm; Wt 99.8 kg
[~2022-12-12 02:21] MED LIST changes: +CIPR500 PO; +DICLOFENAC SOD100 GM TP; +FLUOXETINE HCL20 M1 PO; +HYDPAM25 PO; +LIDO700A20 TOP; +MELA3 PO; +MIRALAX17 GM PO; +SENN187 PO
== END 2022-12-12 03:22 | disposition left against medical advice (07) ==
LOC: ER 02:21
DX: Z53.21 Procedure and treatment not carried out due to patient leaving prior to being seen by health care provider (principal)
CPT/HCPCS: 99282-25

== ENCOUNTER 2023-08-26 17:49 | Emergency (ER) | payer OTHER ==
[~2023-08-26] VITALS: Ht 182.9 cm; Wt 95.2 kg
[2023-08-26] MEDS ORDERED: Ondansetron HCl 2 MG / ML 2ML Vial IV ONE (18:10)
[2023-08-26 18:15] LABS: BASOPHILS ABSOLUTE AUTO 0.04 K/mm3 (0.00-0.23); BASOPHILS PERCENT AUTO 0 % (0-2); EOSINOPHILS ABSOLUTE AUTO 0.18 K/mm3 (0.00-0.68); EOSINOPHILS PERCENT AUTO 2 % (0-6); IMMATURE GRAN ABSOLUTE AUTO 0.03 K/mm3 (0.00-0.10); IMMATURE GRAN PERCENT AUTO 0 % (0-1); LYMPHOCYTES ABSOLUTE AUTO 3.31 K/mm3 (0.84-5.20); LYMPHOCYTES PERCENT AUTO 35 % (21-46); MONOCYTES ABSOLUTE AUTO 0.64 K/mm3 (0.16-1.47); MONOCYTES PERCENT AUTO 7 % (4-13); Mean Corpuscular HGB 31.4 pg (26.0-34.0); Mean Corpuscular HGB Conc 34.9 g/dL (31.5-36.5); Mean Corpuscular Volume 90 fL (80-100); Mean Platelet Volume 11.9 fL (9.1-12.4); NEUTROPHILS ABSOLUTE AUTO 5.32 K/mm3 (1.96-9.15); NEUTROPHILS PERCENT AUTO 56 % (41-73); Platelet Count 190 K/mm3 (150-400); RDW Coefficient Variation 12.3 % (11.7-14.2); RDW Standard Deviation 40.5 fL (35.1-46.3); Red Blood Cell Count 4.78 M/mm3 (4.30-5.90); White Blood Cell Count 9.52 K/mm3 (4.00-11.30)
[2023-08-26 18:43] LABS: Bun/Creatinine Ratio 13.2 (12.0-20.0); Calcium, Blood 9.2 mg/dL (8.5-10.1); Creatinine, Blood 1.44 mg/dL (0.60-1.20)
[2023-08-26] MEDS ORDERED: Cephalexin Monohydrate 500 MG Cap PO ONE (20:20)
[2023-08-26 20:24] LABS: Source, Urine Clean Catch
[2023-08-26] MEDS ORDERED: CEPH500 PO (20:29)
[2023-08-26 20:35] LABS: Bilirubin, Urine Neg (Neg); Blood, Urine Neg (Neg); Glucose Qualitative, Urine Neg (Neg); Ketones, Urine Neg (Neg); Leukocyte Esterase, Urine 1+ (Neg); Nitrite, Urine Pos (Neg); Protein, Urine 2+ (Neg); Urobilinogen, Urine NORM (Normal)
[2023-08-26 20:55] VITALS: BP 126/89
[2023-08-26 21:00] LABS: Appearance, Urine Hazy (Clear); Color, Urine Pale Yellow (P-Yellow)
[2023-08-26 21:03] LABS: Bacteria Many /hpf; Red Blood Cells, Urine Not Seen /hpf (0-2); Squamous Epithelial Cells Rare /hpf (Few); White Blood Cells, Urine TNTC /hpf (0-5)
== END 2023-08-26 21:00 | disposition home or self-care (01) ==
LOC: ER 17:49
PROVIDERS: Emergency Medicine
DX: R56.9 Unspecified convulsions (principal); N39.0 Urinary tract infection, site not specified; Z79.899 Other long term (current) drug therapy; I10 Essential (primary) hypertension; F17.210 Nicotine dependence, cigarettes, uncomplicated
CPT/HCPCS: 71045; 80048; 81001; 85025; 87077; 87086; 87186; 93005; 93010; 96374; 99284-25; A9270; J2405

== ENCOUNTER 2023-11-26 09:31 | Day surgery (SDC) | payer MEDICARE, OTHER ==
[~2023-11-26] VITALS: Ht 180.3 cm; Wt 112.5 kg
[~2023-11-26 09:31] MED LIST changes: +Lactated Ringer's 1,000 ML IV ONE; +propofoL 50 ML IV ONE
[2023-11-26] MEDS ORDERED: CARVEDILOL3.125 MG PO (10:14)
[2023-11-26] MEDS ORDERED: Vitamin D1000 UNI1 (10:15)
[2023-11-26] MEDS ORDERED: GABA300 PO (10:18)
[2023-11-26] MEDS ORDERED: Lactated Ringer's 1,000 ML IV ONE (10:23)
[2023-11-26 14:06] VITALS: BP 109/81
== END 2023-11-26 11:45 | disposition home or self-care (01) ==
LOC: ORSCSDS 09:31
PROVIDERS: Specialist
PROC: 0DBL8ZX Excision of Transverse Colon, Via Natural or Artificial Opening Endoscopic, Diagnostic (ICD-10-PCS; principal; 2023-11-26 11:00)
PROC: 0DBP8ZX Excision of Rectum, Via Natural or Artificial Opening Endoscopic, Diagnostic (ICD-10-PCS; principal; 2023-11-26 11:00)
DX: Z12.11 Encounter for screening for malignant neoplasm of colon (principal); Z86.0101 Personal history of adenomatous and serrated colon polyps; D12.3 Benign neoplasm of transverse colon; K62.1 Rectal polyp; K64.8 Other hemorrhoids; K57.30 Diverticulosis of large intestine without perforation or abscess without bleeding; E78.5 Hyperlipidemia, unspecified; I25.10 Atherosclerotic heart disease of native coronary artery without angina pectoris; Z86.73 Personal history of transient ischemic attack (TIA), and cerebral infarction without residual deficits; I12.9 Hypertensive chronic kidney disease with stage 1 through stage 4 chronic kidney disease, or unspecified chronic kidney disease; N18.31 Chronic kidney disease, stage 3a; K76.0 Fatty (change of) liver, not elsewhere classified; Z79.82 Long term (current) use of aspirin; Z79.899 Other long term (current) drug therapy
CPT/HCPCS: 88305; J2704; J7120

== ENCOUNTER 2024-01-19 08:01 | Emergency (ER) | payer MEDICARE, OTHER ==
[~2024-01-19] VITALS: Ht 182.9 cm; Wt 86.2 kg
[~2024-01-19 08:01] MED LIST changes: +CARVEDILOL3.125 MG PO; +GABA300 PO; -Lactated Ringer's 1,000 ML IV ONE; +Vitamin D1000 UNI1; -propofoL 50 ML IV ONE
[2024-01-19 08:04] VITALS: BP 152/78
[2024-01-19] MEDS ORDERED: levETIRAcetam 1,000 MG in NS 100 ML IV ONE (08:15)
[2024-01-19 08:24] LABS: BASOPHILS ABSOLUTE AUTO 0.03 K/mm3 (0.00-0.23); BASOPHILS PERCENT AUTO 1 % (0-2); EOSINOPHILS ABSOLUTE AUTO 0.18 K/mm3 (0.00-0.68); EOSINOPHILS PERCENT AUTO 3 % (0-6); Hematocrit 40.5 % (37.0-53.0); Hemoglobin 14.1 g/dL (13.5-17.5); IMMATURE GRAN ABSOLUTE AUTO 0.01 K/mm3 (0.00-0.10); IMMATURE GRAN PERCENT AUTO 0 % (0-1); LYMPHOCYTES ABSOLUTE AUTO 1.78 K/mm3 (0.84-5.20); LYMPHOCYTES PERCENT AUTO 30 % (21-46); MONOCYTES ABSOLUTE AUTO 0.36 K/mm3 (0.16-1.47); MONOCYTES PERCENT AUTO 6 % (4-13); Mean Corpuscular HGB 31.7 pg (26.0-34.0); Mean Corpuscular HGB Conc 34.8 g/dL (31.5-36.5); Mean Corpuscular Volume 91 fL (80-100); Mean Platelet Volume 11.7 fL (9.1-12.4); NEUTROPHILS ABSOLUTE AUTO 3.67 K/mm3 (1.96-9.15); NEUTROPHILS PERCENT AUTO 61 % (41-73); Platelet Count 183 K/mm3 (150-400); RDW Coefficient Variation 12.5 % (11.7-14.2); RDW Standard Deviation 41.3 fL (35.1-46.3); Red Blood Cell Count 4.45 M/mm3 (4.30-5.90); White Blood Cell Count 6.03 K/mm3 (4.00-11.30)
[2024-01-19 08:46] LABS: Albumin, Blood 3.8 g/dL (3.4-5.0); Albumin/Globulin Ratio 1.2 (0.8-1.8); Bilirubin, Total 1.6 mg/dL (0.1-1.0); Bun/Creatinine Ratio 10.2 (12.0-20.0); Calcium, Blood 9.3 mg/dL (8.5-10.1); Creatinine, Blood 1.27 mg/dL (0.60-1.20); Globulin, Blood 3.1 g/dL (2.2-4.0); Magnesium, Blood 1.8 mg/dL (1.6-2.4); Potassium, Blood 3.9 mmol/L (3.5-5.5); Total Protein, Blood 6.9 g/dL (6.4-8.2)
[2024-01-19] MEDS ORDERED: Amoxicillin 500 MG Cap PO ONE (09:15)
[2024-01-19 09:31] LABS: Source, Urine Clean Catch
[2024-01-19 09:38] LABS: Appearance, Urine Clear (Clear); Bilirubin, Urine Neg (Neg); Blood, Urine Neg (Neg); Glucose Qualitative, Urine Neg (Neg); Ketones, Urine Neg (Neg); Leukocyte Esterase, Urine Neg (Neg); Nitrite, Urine Neg (Neg); Protein, Urine 2+ (Neg); Urobilinogen, Urine NORM (Normal)
[2024-01-19 09:47] LABS: Color, Urine Pale Yellow (P-Yellow); Red Blood Cells, Urine 0-2 /hpf (0-2); Squamous Epithelial Cells Rare /hpf (Few); White Blood Cells, Urine 0-2 /hpf (0-5)
[2024-01-19 09:48] LABS: Bacteria Rare /hpf
[2024-01-19 09:49] LABS: Hyaline Casts 0-2 /lpf (0-2)
[2024-01-19] MEDS ORDERED: LEVE500 PO (10:00)
[2024-01-19] MEDS ORDERED: AMOX500 PO (10:00)
== END 2024-01-19 10:37 | disposition home or self-care (01) ==
LOC: ER 08:01
PROVIDERS: Student in an Organized Health Care Education/Training Program
DX: R56.9 Unspecified convulsions (principal); J18.9 Pneumonia, unspecified organism; I10 Essential (primary) hypertension; F17.210 Nicotine dependence, cigarettes, uncomplicated; Z86.73 Personal history of transient ischemic attack (TIA), and cerebral infarction without residual deficits; Z79.899 Other long term (current) drug therapy
CPT/HCPCS: 70450; 71045; 80053; 81001; 83735; 85025; 93005; 93010; 96365; 99285-25; A9270; J1953

== ENCOUNTER 2024-02-08 13:26 | Emergency (ER) | payer MEDICARE, OTHER ==
[~2024-02-08] VITALS: Ht 182.9 cm; Wt 117.9 kg
[~2024-02-08 13:26] MED LIST changes: +AMOX500 PO; +LEVE500 PO
[2024-02-08 14:30] LABS: BASOPHILS ABSOLUTE AUTO 0.03 K/mm3 (0.00-0.23); BASOPHILS PERCENT AUTO 0 % (0-2); EOSINOPHILS ABSOLUTE AUTO 0.01 K/mm3 (0.00-0.68); EOSINOPHILS PERCENT AUTO 0 % (0-6); Hematocrit 36.9 % (37.0-53.0); Hemoglobin 12.9 g/dL (13.5-17.5); IMMATURE GRAN ABSOLUTE AUTO 0.03 K/mm3 (0.00-0.10); IMMATURE GRAN PERCENT AUTO 0 % (0-1); LYMPHOCYTES ABSOLUTE AUTO 0.51 K/mm3 (0.84-5.20); LYMPHOCYTES PERCENT AUTO 5 % (21-46); MONOCYTES PERCENT AUTO 6 % (4-13); Mean Corpuscular HGB 31.6 pg (26.0-34.0); Mean Corpuscular Volume 90 fL (80-100); Mean Platelet Volume 11.7 fL (9.1-12.4); NEUTROPHILS ABSOLUTE AUTO 9.82 K/mm3 (1.96-9.15); NEUTROPHILS PERCENT AUTO 88 % (41-73); Platelet Count 195 K/mm3 (150-400); RDW Coefficient Variation 12.7 % (11.7-14.2); RDW Standard Deviation 41.8 fL (35.1-46.3); Red Blood Cell Count 4.08 M/mm3 (4.30-5.90)
[2024-02-08 14:52] LABS: Albumin/Globulin Ratio 1.1 (0.8-1.8); Calcium, Blood 9.6 mg/dL (8.5-10.1); Creatinine, Blood 1.54 mg/dL (0.60-1.20); Globulin, Blood 3.5 g/dL (2.2-4.0); Potassium, Blood 3.8 mmol/L (3.5-5.5); Total Protein, Blood 7.5 g/dL (6.4-8.2)
[2024-02-08] MEDS ORDERED: Morphine Sulfate 4 MG/1 ML Injection IV ONE (16:50)
[2024-02-08] MEDS ORDERED: DOXY100 PO (16:55)
[2024-02-08] MEDS ORDERED: Doxycycline Hyclate 100 MG TAB PO ONE (16:55)
[2024-02-08 21:00] VITALS: BP 144/65
== END 2024-02-08 21:45 | disposition home or self-care (01) ==
LOC: ER 13:26
PROVIDERS: Student in an Organized Health Care Education/Training Program
DX: L03.116 Cellulitis of left lower limb (principal); I10 Essential (primary) hypertension; F17.210 Nicotine dependence, cigarettes, uncomplicated; Z79.899 Other long term (current) drug therapy
CPT/HCPCS: 73610; 80053; 85025; 93971; 96374; 99284-25; A9270; J2270

== ENCOUNTER → 2024-03-10 | Outpatient (CLI) | payer MEDICARE, OTHER ==
[~2024-03-10] MED LIST changes: +DOXY100 PO
[2024-03-10 17:13] LABS: Source, Urine Clean Catch
[2024-03-10 19:04] LABS: Appearance, Urine Clear (Clear); Bilirubin, Urine Neg (Neg); Blood, Urine Neg (Neg); Color, Urine Yellow (P-Yellow); Glucose Qualitative, Urine Neg (Neg); Ketones, Urine Neg (Neg); Leukocyte Esterase, Urine Neg (Neg); Nitrite, Urine Neg (Neg); Protein, Urine Neg (Neg); Urobilinogen, Urine NORM (Normal); pH, Urine 6.5 (5.0-8.0)
== END | disposition home or self-care (01) ==
LOC: LAB 17:10 → LAB SHORT 17:10
PROVIDERS: Physician Assistant
DX: N39.0 Urinary tract infection, site not specified (principal)
CPT/HCPCS: 81003

== ENCOUNTER 2024-04-01 14:08 | Day surgery (SDC) | payer MEDICARE, OTHER ==
[~2024-04-01] VITALS: Ht 180.3 cm; Wt 116.5 kg
[~2024-04-01 14:08] MED LIST changes: +ACET325; +Lactated Ringer's 0 ML IV ONE; +Lidocaine HCl/Pf 1% 5 ML VIAL ONE
[2024-04-01] MEDS ORDERED: BISA10S (14:09)
[2024-04-01] MEDS ORDERED: LOPE2C (14:13)
[2024-04-01] MEDS ORDERED: IBUP400 (14:13)
[2024-04-01] MEDS ORDERED: NYSTRIT (14:14)
[2024-04-01] MEDS ORDERED: DULCOLAX400 MG/5 M (14:14)
[2024-04-01] MEDS ORDERED: ONDA4ODT (14:14)
[2024-04-01] MEDS ORDERED: MIRALAX17 GM (14:14)
[2024-04-01] MEDS ORDERED: SENNA LAXATIVE8.6 MG (14:15)
[2024-04-01] MEDS ORDERED: PANT20 (14:15)
[2024-04-01] MEDS ORDERED: LOSA50 (14:15)
[2024-04-01] MEDS ORDERED: TAMS.4ER (14:16)
[2024-04-01] MEDS ORDERED: ACET500 (14:34)
[2024-04-01] MEDS ORDERED: DIVA125 (14:35)
[2024-04-01] MEDS ORDERED: AMLO5 (14:35)
[2024-04-01] MEDS ORDERED: TUMS500 MG (14:35)
[2024-04-01] MEDS ORDERED: CARV3.125 (14:35)
[2024-04-01] MEDS ORDERED: TICA90TA (14:36)
[2024-04-01] MEDS ORDERED: Lactated Ringer's 1,000 ML IV ONE ×2 (14:40→15:47)
[2024-04-01] MEDS ORDERED: propofoL 50 ML IV ONE (14:47)
[2024-04-01 16:34] VITALS: BP 145/84
== END 2024-04-01 16:00 | disposition home or self-care (01) ==
LOC: ORSCSDS 14:08
PROVIDERS: Internal Medicine Gastroenterology
PROC: 0DJ08ZZ Inspection of Upper Intestinal Tract, Via Natural or Artificial Opening Endoscopic (ICD-10-PCS; principal; 2024-04-01 12:30)
DX: R13.10 Dysphagia, unspecified (principal); I12.9 Hypertensive chronic kidney disease with stage 1 through stage 4 chronic kidney disease, or unspecified chronic kidney disease; N18.31 Chronic kidney disease, stage 3a; I50.9 Heart failure, unspecified; I63.9 Cerebral infarction, unspecified; K21.9 Gastro-esophageal reflux disease without esophagitis; Z68.35 Body mass index [BMI] 35.0-35.9, adult; E66.9 Obesity, unspecified; F17.210 Nicotine dependence, cigarettes, uncomplicated; Z79.82 Long term (current) use of aspirin; Z79.899 Other long term (current) drug therapy
CPT/HCPCS: J2003; J2704; J7120

== ENCOUNTER 2024-10-12 15:58 | Emergency (ER) | payer MEDICARE, OTHER ==
[~2024-10-12] VITALS: Ht 170.2 cm; Wt 108.9 kg
[~2024-10-12 15:58] MED LIST changes: +ACET500; +AMLO5; +BISA10S; +CARV3.125; +DIVA125; +DULCOLAX400 MG/5 M; +IBUP400; +LOPE2C; +LOSA50; -Lactated Ringer's 0 ML IV ONE; -Lidocaine HCl/Pf 1% 5 ML VIAL ONE; +MIRALAX17 GM; +NYSTRIT; +ONDA4ODT; +PANT20; +SENNA LAXATIVE8.6 MG; +TAMS.4ER; +TICA90TA; +TUMS500 MG
[2024-10-12] MEDS ORDERED: Ketorolac Tromethamine 15mg Vial IV ONE (16:35)
[2024-10-12] MEDS ORDERED: IBUP800 PO (17:52)
[2024-10-12] MEDS ORDERED: Percocet 5-3251 EACH PO (17:52)
[2024-10-12] MEDS ORDERED: LIDO700A20 TOP (17:52)
[2024-10-12 18:37] VITALS: BP 110/74
== END 2024-10-12 18:39 | disposition home or self-care (01) ==
LOC: ER 15:58
DX: S20.212A Contusion of left front wall of thorax, initial encounter (principal); S60.417A Abrasion of left little finger, initial encounter; I10 Essential (primary) hypertension; H91.90 Unspecified hearing loss, unspecified ear; K21.9 Gastro-esophageal reflux disease without esophagitis; F17.210 Nicotine dependence, cigarettes, uncomplicated; Z86.73 Personal history of transient ischemic attack (TIA), and cerebral infarction without residual deficits; Z79.899 Other long term (current) drug therapy; V00.811A Fall from moving wheelchair (powered), initial encounter
CPT/HCPCS: 71101; 73140; 90471; 90715; 96374; 99283-25; A9270; J1885

== ENCOUNTER 2025-01-28 15:33 | Emergency (ER) | payer MEDICARE, OTHER ==
[~2025-01-28] VITALS: Ht 180.3 cm; Wt 118.4 kg
[~2025-01-28 15:33] MED LIST changes: +IBUP800 PO; +Percocet 5-3251 EACH PO
[2025-01-28 16:33] LABS: BASOPHILS ABSOLUTE AUTO 0.02 K/mm3 (0.00-0.23); BASOPHILS PERCENT AUTO 0 % (0-2); EOSINOPHILS ABSOLUTE AUTO 0.14 K/mm3 (0.00-0.68); EOSINOPHILS PERCENT AUTO 2 % (0-6); Hematocrit 38.4 % (37.0-53.0); Hemoglobin 13.4 g/dL (13.5-17.5); IMMATURE GRAN ABSOLUTE AUTO 0.02 K/mm3 (0.00-0.10); IMMATURE GRAN PERCENT AUTO 0 % (0-1); LYMPHOCYTES ABSOLUTE AUTO 2.12 K/mm3 (0.84-5.20); LYMPHOCYTES PERCENT AUTO 35 % (21-46); MONOCYTES ABSOLUTE AUTO 0.60 K/mm3 (0.16-1.47); MONOCYTES PERCENT AUTO 10 % (4-13); Mean Corpuscular HGB Conc 34.9 g/dL (31.5-36.5); Mean Corpuscular Volume 96 fL (80-100); NEUTROPHILS ABSOLUTE AUTO 3.19 K/mm3 (1.96-9.15); NEUTROPHILS PERCENT AUTO 52 % (41-73); NRBC ABSOLUTE 0.00 K/mm3 (0.00-0.02); NRBC Auto 0.0 /100 WBC (0.0-0.2); Platelet Count 146 K/mm3 (150-400); RDW Coefficient Variation 12.2 % (11.7-14.2); RDW Standard Deviation 42.6 fL (35.1-46.3)
[2025-01-28 16:53] LABS: Alanine Aminotransfer (ALT/SGP 50.0 U/L (12-78); Albumin, Blood 3.6 g/dL (3.4-5.0); Albumin/Globulin Ratio 1.2 (0.8-1.8); Anion Gap 8.0 mmol/L (3-11); Aspartate Aminotrans (AST/SGOT 33.0 U/L (12-37); Bilirubin, Total 1.0 mg/dL (0.1-1.0); Blood Urea Nitrogen 21.0 mg/dL (8-24); CO2, Blood 30.0 mmol/L (21-32); Calcium, Blood 8.9 mg/dL (8.5-10.1); Chloride, Blood 104.0 mmol/L (98-108); Creatinine, Blood 1.56 mg/dL (0.60-1.20); Globulin, Blood 3.0 g/dL (2.2-4.0); Glucose, Blood 108.0 mg/dL (70-99); Potassium, Blood 4.5 mmol/L (3.5-5.5); Sodium, Blood 137.0 mmol/L (136-145); Total Protein, Blood 6.6 g/dL (6.4-8.2)
[2025-01-28 21:00] VITALS: BP 110/78
== END 2025-01-28 21:26 | disposition home or self-care (01) ==
LOC: ER 15:33
PROVIDERS: Emergency Medicine
DX: T18.128A Food in esophagus causing other injury, initial encounter (principal); W44.F3XA Food entering into or through a natural orifice, initial encounter; Z79.899 Other long term (current) drug therapy; F17.210 Nicotine dependence, cigarettes, uncomplicated; I10 Essential (primary) hypertension
CPT/HCPCS: 71046; 80053; 85025; 99284-25